=== PATIENT | female | born 1950 | race Caucasian/White ===

== ENCOUNTER → 2016-10-20 | Day surgery (SDC) | payer OTHER ==
--- NOTE | 2016-10-19 18:53 | MH ---
cc: DREW MIN DATE OF ADMISSION 10/20/2016 REASON FOR CONSULTATION A 65-year-old female with chronic otitis media on the left ear from left myringotomy and tube placement. PAST MEDICAL HISTORY Unremarkable. PAST SURGICAL HISTORY Unremarkable. REVIEW OF SYSTEMS Unremarkable. FAMILY HISTORY Unremarkable. SOCIAL HISTORY Unremarkable. PHYSICAL EXAMINATION GENERAL: Well-appearing patient no acute distress noted. HEENT: Exam reveals fluid behind left drum. NECK: Soft, supple, no masses. LUNGS: Clear. HEART: Regular rate and rhythm. ABDOMEN: Soft and nontender. EXTREMITIES: Without cyanosis, clubbing or edema. NEUROLOGIC: Alert, oriented, nonfocal neurologic exam. IMPRESSION Patient with chronic otitis media for tube placement. Instructed in the method of surgery and possible complication including anesthetic complications, cardiac difficulty, pulmonary difficulty, stroke, or even . The patient appeared to agree, accept and understand above-mentioned risks and benefits. In addition no guarantees or warranties regarding outcome were given. We will therefore proceed with surgery. MD CAMERON Paulino/KERRI /5:53 PM /6:44 PM
[~2016-10-20] VITALS: Ht 160 cm; Wt 59.5 kg
[~2016-10-20] MED LIST: BIOT50005 PO; CALC600T10 PO; CHEL50TA PO; DEXAMETHASONE SOD PHOS 4 MG/ML VIAL ONE; DO NOT ADM ANY ANTICOAGULANT DRUGS XX PRN; FAMOTIDINE 20 MG/2 ML VIAL ONE; INSULIN HUMAN REGULAR 1,000 UNITS/10 ML VIAL SQ PRN; KETOROLAC TROMETHAMINE 60 MG/2 ML (IM) VIAL IM ONE; LACTATED RINGER'S 1000 ML IV SCH; METO25TA3 PO; METOPROLOL TARTRATE 25 MG TAB PO PRN; MIDAZOLAM HCL 2 MG/2 ML VIAL ONE; OFLOXACIN 0.3% OPTH SOLN 5 ML BTL LEFT EAR ONE; OFLOXACIN 0.3% OPTH SOLN 5 ML BTL ONE; ONDANSETRON HCL 4 MG/2 ML VIAL IV PUSH ONE; PROB1CAP12 PO; PROPOFOL 200 MG/20 ML AMP IV ONE; SODIUM CHLORID 0.9% 500 ML IV SCH; VALS160T4 PO; VITACAP7 PO
[2016-10-20 06:55] VITALS: BP 122/69; PULSE 50; RESP 20; TEMP 97.6; O2SAT 96
[2016-10-20 09:32] VITALS: BP 142/66; PULSE 54; RESP 16; TEMP 97; O2SAT 98
--- NOTE | 2016-10-20 23:39 | EKG ---
Date Performed: 10/20/2016 Time Performed: 07:05:20 PTAGE: 65 years EKG: SINUS BRADYCARDIA POSSIBLE RIGHT VENTRICULAR CONDUCTION DELAY MODERATE T-WAVE ABNORMALITY, CONSIDER ANTERIOR ISCHEMIA ABNORMAL ECG NO PREVIOUS TRACING DOCTOR: Ko Rutherford Interpretating Date/Time 10/20/2016 23:38:12
--- NOTE | 2016-10-21 08:50 | MP ---
cc: DREW MIN M.D. DATE OF SURGERY: 10/20/2016 PREOPERATIVE DIAGNOSIS Chronic otitis media. PROCEDURE Left myringotomy and tube placement. ANESTHESIA General anesthesia. ESTIMATED BLOOD LOSS Minimal. COMPLICATIONS No complications. OPERATING SURGEON Dr. Min. OPERATION Under microscopic visualization anterior-inferior radial myringotomy incision was made on the left eardrum. Fluid was suctioned from middle ear cavity and T-tube tympanostomy tube placed in good position along with Oflox on the left side under microscopic visualization. The patient tolerated the procedure well. There were no complications. MD CAMERON Paulino/CHARITO /8:15 AM /8:37 AM
== END | disposition home or self-care (01) ==
LOC: HSDC 05:57
PROVIDERS: ATTEND Specialist
DX: H66.92 Otitis media, unspecified, left ear (principal); I10 Essential (primary) hypertension; R94.31 Abnormal electrocardiogram [ECG] [EKG]
CPT/HCPCS: 00126; 69436; 93005; J1100; J1885; J2250; J2405; J3010; J7120